=== PATIENT | female | born 2000 | race Two or more races ===

== ENCOUNTER 2024-09-10 13:28 | Emergency (ER) | payer BC ==
[~2024-09-10] VITALS: Ht 165.1 cm; Wt 62.6 kg
[2024-09-10] MEDS ORDERED: PRED20TA PO (14:43)
[2024-09-10] MEDS ORDERED: EPIN0.3P3 IM (14:43)
[2024-09-10] MEDS ORDERED: FAMOTIDINE/PF INJ 20 MG/2 ML VIAL IV ONE (15:05)
[2024-09-10] MEDS ORDERED: methylPREDNISolone SOD SUCC 125 MG/2ML VIAL ONE (15:05)
[2024-09-10] MEDS: methylPREDNISolone SOD SUCC 125 MG/2ML VIAL IV ONE (15:13)
[2024-09-10] MEDS: FAMOTIDINE/PF INJ 20 MG/2 ML VIAL IV ONE (15:13)
[2024-09-10 17:24] VITALS: BP 115/70; TEMP 98.4; O2SAT 100
== END 2024-09-10 17:24 | disposition home or self-care (01) ==
LOC: ER 13:46
DX: T78.05XA Anaphylactic reaction due to tree nuts and seeds, initial encounter (principal); Y84.8 Other medical procedures as the cause of abnormal reaction of the patient, or of later complication, without mention of misadventure at the time of the procedure; Y92.89 Other specified places as the place of occurrence of the external cause
CPT/HCPCS: 99285; 96374; 96375; J1308; J2919